=== PATIENT | female | born 1940 | race Caucasian/White ===

== ENCOUNTER 2019-08-03 21:35 | Inpatient (IN) ==
[2019-08-03] MEDS ORDERED: Ipratropium/Albuterol Neb 3 ML IH ONE ×2 (21:52→23:43)
[2019-08-03] MEDS ORDERED: methylPREDNISolone 125 MG/2 ML VIAL IVP ONE (22:34)
[2019-08-03] MEDS ORDERED: methylPREDNISolone 125 MG/2 ML VIAL ONE (23:06)
[2019-08-03 23:15] LABS: Troponin I 0.04 ng/mL (< 0.04)
[2019-08-03] MEDS ORDERED: Furosemide 40 MG/4 ML VIAL IVP ONE (23:18)
[2019-08-03 23:56] LABS: Albumin 3.8 g/dL (3.5-5.7); Albumin/Globulin Ratio 1.3 (1.1-2.2); Bilirubin,Total 0.7 mg/dL (0.3-1.0); Calcium 8.7 mg/dL (8.6-10.3); Globulin 2.9 g/dL (2.4-3.5); Magnesium 1.9 mg/dL (1.6-2.6); Potassium 3.7 mEq/L (3.5-5.1); Total Protein 6.7 g/dL (6.4-8.9)
[2019-08-03 23:57] LABS: Basophils # 0.1 K/mcL (0.0-0.2); Basophils % 0.7 %; Eosinophils % 0.3 %; Hematocrit 36.7 % (35.3-44.9); Hemoglobin 11.8 g/dL (11.5-15.4); Immature Granulocytes % 0.5 % (0-4); Lymphocytes # 0.6 K/mcL (0.6-4.6); Mean Corpuscular HGB Conc 32.2 g/dL (31.6-35.5); Mean Corpuscular Hemoglobin 29.6 pg (28.0-33.3); Mean Platelet Volume 10.5 fL (9.4-12.4); Monocytes # 0.3 K/mcL (0.0-1.3); Monocytes % 3.6 %; Neutrophils # 8.3 K/mcL (1.6-8.9); Platelet Count 180 K/mcL (140-400); Red Blood Count 3.99 M/mcL (3.82-4.97); Red Cell Distribution Width 13.3 % (11.5-14.5); Segmented Neutrophils % 88.9 %; White Blood Count 9.4 K/mcL (4.3-11.1)
[2019-08-04 00:02] LABS: INR 1.2; Prothrombin Time 13.7 Seconds (9.4-12.1)
[2019-08-04] MEDS ORDERED: *HR* LORazepam 0.5 MG TABLET PO ONE (00:23)
[2019-08-04] MEDS ORDERED: Naloxone 0.4 MG/ML INJ IVP PRN (03:08)
[2019-08-04 05:10] LABS: Calcium 8.8 mg/dL (8.6-10.3); Potassium 3.7 mEq/L (3.5-5.1)
[2019-08-04] MEDS ORDERED: *HR* Heparin 5,000 UNIT/ML VIAL IVP ONE (05:24)
[2019-08-04] MEDS ORDERED: Aspirin Enteric Coated 325 MG Tablet PO ONE (05:24)
[2019-08-04] MEDS ORDERED: *HR* Heparin 5,000 UNIT/ML VIAL IVP PRN ×2 (05:24)
[2019-08-04 07:12] LABS: Hematocrit 33.9 % (35.3-44.9); Hemoglobin 10.9 g/dL (11.5-15.4); Mean Corpuscular HGB Conc 32.2 g/dL (31.6-35.5); Mean Corpuscular Hemoglobin 29.6 pg (28.0-33.3); Mean Corpuscular Volume 92.1 fL (83.0-100.0); Mean Platelet Volume 10.4 fL (9.4-12.4); Platelet Count 141 K/mcL (140-400); Red Blood Count 3.68 M/mcL (3.82-4.97); Red Cell Distribution Width 13.2 % (11.5-14.5); White Blood Count 6.1 K/mcL (4.3-11.1)
[2019-08-04] MEDS: Heparin 25,000 UNIT/250 ML D5W 25,000 UNIT/250 ML IV.SOLN IVC SCH (07:25)
[2019-08-04] MEDS: Ipratropium/Albuterol Neb 3 ML IH SCH ×4 (07:37→19:46)
[2019-08-04] MEDS ORDERED: *HR* LORazepam 2 MG/ML VIAL IVP ONE (21:59)
[2019-08-05] MEDS: Ipratropium/Albuterol Neb 3 ML IH SCH ×7 (00:01→23:49)
[2019-08-05] MEDS ORDERED: Acetaminophen 325 MG TABLET PO ONE (02:40)
[2019-08-05 04:18] LABS: Adenovirus Not Detected (Not Detect); Coronavirus 229E DETECTED (Not Detect)
[2019-08-05 04:19] LABS: Bordetella Pertussis Not Detected (Not Detect); Chlamydophila pneumoniae Not Detected (Not Detect); Coronavirus HKU1 Not Detected (Not Detect); Coronavirus NL63 Not Detected (Not Detect); Coronavirus OC43 Not Detected (Not Detect); Human Metapneumovirus Not Detected (Not Detect); Human Rhinovirus/Enterovirus Not Detected (Not Detect); Influenza A Subtype 2009 H1 Not Detected (Not Detect); Influenza B Not Detected (Not Detect); Mycoplasma pneumoniae Not Detected (Not Detect); Parainfluenza Virus 1 Not Detected (Not Detect); Parainfluenza Virus 2 Not Detected (Not Detect); Parainfluenza Virus 3 Not Detected (Not Detect); Parainfluenza Virus 4 Not Detected (Not Detect); Respiratory Syncytial Virus Not Detected (Not Detect)
[2019-08-05] MEDS ORDERED: Nitroglycerin 0.4 MG TAB.SUBL SL ONE (08:31)
[2019-08-05] MEDS: Aspirin Enteric Coated 81 MG Tablet PO SCH (08:37)
[2019-08-05] MEDS ORDERED: 0.9 % Sodium Chloride 500 ML IVC ONE (08:47)
[2019-08-05] MEDS ORDERED: Morphine Sulfate 2 MG/ML SYRINGE IVP ONE (08:50)
[2019-08-05] MEDS: Morphine Sulfate 2 MG/ML SYRINGE IVP PRN ×6 (11:03→21:35)
[2019-08-05] MEDS: Heparin 25,000 UNIT/250 ML D5W 25,000 UNIT/250 ML IV.SOLN IVC SCH (21:26)
[2019-08-05] MEDS: *HR* LORazepam 2 MG/ML VIAL IVP PRN (21:35)
[2019-08-06] MEDS: Ipratropium/Albuterol Neb 3 ML IH SCH ×3 (03:39→11:24)
[2019-08-06] MEDS: Morphine Sulfate 2 MG/ML SYRINGE IVP PRN ×3 (05:36→08:11)
[2019-08-06] MEDS: Aspirin Enteric Coated 81 MG Tablet PO SCH (08:02)
[2019-08-06] MEDS: *HR* LORazepam 2 MG/ML VIAL IVP PRN (08:19)
[2019-08-06 10:49] VITALS: BP 87/60
== END 2019-08-06 11:29 | disposition hospice, inpatient (51) | DRG 280 ==
LOC: EMEROOARM 21:35 → 2NENU 21:35 → 2ANU 08-05 17:06
PROVIDERS: ADMIT Family Medicine; ATTEND Family Medicine

== ENCOUNTER 2019-08-06 09:20 | Inpatient (IN) ==
[2019-08-06] MEDS ORDERED: Bisacodyl 10 MG RECTAL SUPPOSITORY RC PRN (10:53)
[2019-08-06] MEDS: Morphine Sulfate Oral CONC 10 MG/0.5 ML ORAL.SYG SL SCH ×4 (11:51→23:55)
[2019-08-06] MEDS: Ipratropium/Albuterol Neb 3 ML IH SCH ×3 (15:02→21:56)
[2019-08-06] MEDS: Morphine Sulfate Oral CONC 10 MG/0.5 ML ORAL.SYG SL PRN ×2 (16:47→17:58)
[2019-08-06] MEDS: *HR* LORazepam Oral Conc 2 MG/ML PO PRN ×2 (16:54→23:57)
[2019-08-06] MEDS: Haloperidol Oral Conc 10 MG/5 ML UDC PO PRN (17:58)
[2019-08-07] MEDS: Morphine Sulfate Oral CONC 10 MG/0.5 ML ORAL.SYG SL PRN ×7 (02:06→19:03)
[2019-08-07] MEDS: Haloperidol Oral Conc 10 MG/5 ML UDC PO PRN ×3 (03:06→20:51)
[2019-08-07] MEDS: Ipratropium/Albuterol Neb 3 ML IH SCH ×2 (03:57→10:13)
[2019-08-07] MEDS: Morphine Sulfate Oral CONC 10 MG/0.5 ML ORAL.SYG SL SCH ×6 (04:27→23:59)
[2019-08-07] MEDS: *HR* LORazepam Oral Conc 2 MG/ML PO PRN ×4 (04:33→19:03)
[2019-08-07] MEDS ORDERED: Aspirin 81 MG TAB.CHEW PO SCH (09:00)
[2019-08-07] MEDS: Atropine Sulfate 1% 40 DROP/2 ML BOTTLE SL PRN ×2 (14:49→16:01)
[2019-08-07] MEDS ORDERED: Ipratropium/Albuterol Neb 3 ML IH PRN (15:53)
[2019-08-07 20:48] VITALS: BP 64/36
== END 2019-08-08 00:05 | disposition expired | DRG 313 ==
LOC: 2ANU 11:29
PROVIDERS: ADMIT Internal Medicine Hospice and Palliative Medicine; ATTEND Internal Medicine Hospice and Palliative Medicine